=== PATIENT | female | born 1990 | race Caucasian/White ===

== ENCOUNTER 2018-06-06 18:07 | Emergency (ER) | payer BC ==
--- NOTE | 2018-06-06 18:28 | EDPHY ---
H & P Stated Complaint: cough, chills, lower back pain x 2 days Time Seen by Provider: 06/06/18 18:28 HPI/ROS: HPI: This is a 27-year-old female who presents with Chief Complaint: cough, chills, lower back pain x 2 days Location: Body Quality: Fever Duration: 2 day Signs and Symptoms: + fever, no nausea, no vomiting, no hematemesis, no blood in stool, no abdominal bloating, no diarrhea, + bilateral lumbar back pain, no urinary symptoms, no vaginal bleeding/discharge, no indigestion, no chest pain, no shortness of breath Timing: Acute, constant Severity: Moderate Context: Patient is a student at [employer], also works part-time in a local restaurant, presents with 2 day history of fever T-max 101 F at home, nonproductive cough, chills, fatigue, bilateral lumbar back pain. Patient denies any urinary symptoms no burning with urination, no frequency, no hesitancy. Patient denies vaginal bleeding or discharge. Did not receive influenza vaccine this year. Never smoked. Patient reports that she has not had a fever today. She did take Tylenol yesterday. Denies sore throat, neck stiffness, changes in voice, drooling, postnasal drip, nasal congestion, headache. No recent foreign travel. No history of lung disease. Modifying Factors: Tylenol taking yesterday but none within the last 24 hr Comment: ROS: A comprehensive 10 system review of systems is otherwise negative aside from elements mentioned in the history of present illness. MEDICAL/SURGICAL/SOCIAL HISTORY: Medical history: Generally healthy. Does not take any regular medications. Surgical history: Denies Social history: Never smoked. Family history noncontributory. CONSTITUTIONAL: Nontoxic-appearing, young adult white female, polite and cooperative, awake and alert, no obvious distress HEENT: Atraumatic and normocephalic, PERRL, EOMI. Nares patent; no rhinorrhea; no nasal mucosal edema. Tympanic membranes clear. Oropharynx clear, tonsils 1 + without hypertrophy or erythema, no exudate and moist pink mucosa. Uvula midline. Airway patent. No lymphadenopathy. No meningismus. Cardiovascular: Normal S1/S2, regular rate, regular rhythm, without murmur rub or gallop. PULMONARY/CHEST: Symmetrical and nontender. Clear to auscultation bilaterally. Good air movement. No accessory muscle usage. ABDOMEN: Soft, nondistended, nontender, no rebound, no guarding, no peritoneal signs, no masses or organomegaly. No CVAT. EXTREMITIES: 2/2 pulses, strength 5/5, no deformities, no clubbing, no cyanosis or edema. NEUROLOGICAL: no focal neuro deficits. GCS 15. Speech clear, SKIN: Warm and dry, no erythema. no rash. Good capillary refill. Source: Patient Exam Limitations: No limitations - Personal History LMP (Females 10-55): IUD In Place - Medical/Surgical History Hx Asthma: No Hx Chronic Respiratory Disease: No Hx Diabetes: No Hx Cardiac Disease: No Hx Renal Disease: No Hx Cirrhosis: No Hx Alcoholism: No Hx HIV/AIDS: No Hx Splenectomy or Spleen Trauma: No Other PMH: pylo - Social History Smoking Status: Never smoked Constitutional: Initial Vital Signs Temperature (C) 37.4 C 06/06/18 18:17 Heart Rate 102 H 06/06/18 18:17 Respiratory Rate 20 06/06/18 18:17 Blood Pressure 109/91 H 06/06/18 18:17 O2 Sat (%) 97 06/06/18 18:17 O2 Delivery Mode Room Air Allergies/Adverse Reactions: No Known Allergies Allergy (Unverified 06/06/18 18:16) Home Medications: Medication Instructions Recorded NK [No Known Home Meds] 06/06/18 Medical Decision Making ED Course/Re-evaluation: Vital signs reviewed and show mild tachycardia. No pyrexia in 24 hr. No signs of hypoxia/respiratory distress. IV access, laboratory studies, urinalysis, influenza swab ordered Given 2 L normal saline, IV Toradol 30 mg 1911: Notified by RN that temperature 38.1 C. 1000 mg Tylenol ordered 1914: Labs reviewed. No signs of leukocytosis/anemia/platelet dysfunction/JACEY/ elevated LFTs/electrolyte imbalance/pancreatitis//mono. 1918: Urinalysis shows 2+ ketones but no signs of infection, no hematuria. 1929: Notified by tech that patient is influenza A positive. Based on CDC guidelines, patient is not a candidate for the Tamiflu. Advised supportive care, work and school excuse provided. This patient was seen under the supervision of my secondary supervising physician. I evaluated care for this patient independently. Discussed this patient with Dr. King. Differential Diagnosis: Adult fever including but not limited to viral syndromes including influenza, urinary tract infection, pneumonia and sepsis. - Data Points Laboratory Results: Laboratory Results 06/06/18 18:40 06/06/18 18:40 06/06/18 06/06/18 06/06/18 19:12 18:40 18:40 WBC RBC Hgb Hct MCV MCH MCHC RDW Plt Count MPV Neut % (Auto) Lymph % (Auto) Grand % (Auto) Eos % (Auto) Baso % (Auto) Nucleat RBC Rel Count Absolute Neuts (auto) Absolute Lymphs (auto) Absolute Monos (auto) Absolute Eos (auto) Absolute Basos (auto) Absolute Nucleated RBC Immature Gran % Immature Gran # RBC/WBC/PLT Morphology Platelet Estimate Sodium Potassium Chloride Carbon Dioxide Anion Gap BUN Creatinine Estimated GFR Glucose Calcium Total Bilirubin Conjugated Bilirubin Unconjugated Bilirubin AST ALT Alkaline Phosphatase Total Protein Albumin Lipase Beta HCG, Qual NEGATIVE Urine Color YELLOW Urine Appearance CLEAR Urine pH 7.0 (5.0-7.5) Ur Specific [place] 1.008 (1.002-1.030) Urine Protein NEGATIVE (NEGATIVE) Urine Ketones 2+ H (NEGATIVE) Urine Blood NEGATIVE (NEGATIVE) Urine Nitrate NEGATIVE (NEGATIVE) Urine Bilirubin NEGATIVE (NEGATIVE) Urine Urobilinogen NEGATIVE EU EU (0.2-1.0) Ur Leukocyte Esterase NEGATIVE (NEGATIVE) Urine Glucose NEGATIVE (NEGATIVE) Nasal Influenza A PCR FLU A DETECTED H (NEGATIVE) Nasal Influenza B PCR NEGATIVE FOR FLU B (NEGATIVE) Monoscreen NEGATIVE (NEGATIVE) 06/06/18 06/06/18 18:40 18:40 WBC 4.80 10^3/uL 10^3/uL (3.80-9.50) RBC 5.13 10^6/uL 10^6/uL (4.18-5.33) Hgb 15.4 g/dL g/dL (12.6-16.3) Hct 44.3 % % (38.0-47.0) MCV 86.4 fL fL (81.5-99.8) MCH 30.0 pg pg (27.9-34.1) MCHC 34.8 g/dL g/dL (32.4-36.7) RDW 12.1 % % (11.5-15.2) Plt Count 236 10^3/uL 10^3/uL (150-400) MPV 9.4 fL fL (8.7-11.7) Neut % (Auto) 77.7 % H % (39.3-74.2) Lymph % (Auto) 9.2 % L % (15.0-45.0) Grand % (Auto) 12.3 % % (4.5-13.0) Eos % (Auto) 0.0 % L % (0.6-7.6) Baso % (Auto) 0.6 % % (0.3-1.7) Nucleat RBC Rel Count 0.0 % % (0.0-0.2) Absolute Neuts (auto) 3.73 10^3/uL 10^3/uL (1.70-6.50) Absolute Lymphs (auto) 0.44 10^3/uL L 10^3/uL (1.00-3.00) Absolute Monos (auto) 0.59 10^3/uL 10^3/uL (0.30-0.80) Absolute Eos (auto) 0.00 10^3/uL L 10^3/uL (0.03-0.40) Absolute Basos (auto) 0.03 10^3/uL 10^3/uL (0.02-0.10) Absolute Nucleated RBC 0.00 10^3/uL 10^3/uL (0-0.01) Immature Gran % 0.2 % % (0.0-1.1) Immature Gran # 0.01 10^3/uL 10^3/uL (0.00-0.10) RBC/WBC/PLT Morphology TNP Platelet Estimate ADEQUATE (ADEQ) Sodium 136 mEq/L mEq/L (135-145) Potassium 3.9 mEq/L mEq/L (3.5-5.2) Chloride 106 mEq/L mEq/L (97-110) Carbon Dioxide 22 mEq/l mEq/l (22-31) Anion Gap 8 mEq/L mEq/L (6-14) BUN 7 mg/dL mg/dL (7-23) Creatinine 0.8 mg/dL mg/dL (0.6-1.0) Estimated GFR > 60 Glucose 90 mg/dL mg/dL (70-100) Calcium 9.2 mg/dL mg/dL (8.5-10.4) Total Bilirubin 0.6 mg/dL mg/dL (0.1-1.4) Conjugated Bilirubin 0.2 mg/dL mg/dL (0.0-0.5) Unconjugated Bilirubin 0.4 mg/dL mg/dL (0.0-1.1) AST 24 IU/L IU/L (14-46) ALT 26 IU/L IU/L (9-52) Alkaline Phosphatase 69 IU/L IU/L (38-126) Total Protein 7.5 g/dL g/dL (6.3-8.2) Albumin 4.4 g/dL g/dL (3.5-5.0) Lipase 69 IU/L IU/L (23-300) Beta HCG, Qual Urine Color Urine Appearance Urine pH Ur Specific [place] Urine Protein Urine Ketones Urine Blood Urine Nitrate Urine Bilirubin Urine Urobilinogen Ur Leukocyte Esterase Urine Glucose Nasal Influenza A PCR Nasal Influenza B PCR Monoscreen Medications Given: Discontinued Medications Acetaminophen (Tylenol) 1,000 mg PO EDNOW ONE Stop: 06/06/18 19:13 Last Admin: 06/06/18 19:15 Dose: 1,000 mg Sodium Chloride (Ns) 1,000 mls @ 3,000 mls/hr IV ONCE ONE Stop: 06/06/18 18:57 Last Admin: 06/06/18 18:38 Dose: 1,000 mls Sodium Chloride (Ns) 1,000 mls @ 0 mls/hr IV EDNOW ONE; Wide Open PRN Reason: Protocol Stop: 06/06/18 18:35 Last Admin: 06/06/18 19:01 Dose: 1,000 mls Sodium Chloride (Ns) 1,000 mls @ 0 mls/hr IV EDNOW ONE; Wide Open PRN Reason: Protocol Stop: 06/06/18 18:35 Last Admin: 06/06/18 19:02 Dose: Not Given Ketorolac Tromethamine (Toradol) 30 mg IVP EDNOW ONE Stop: 06/06/18 18:35 Last Admin: 06/06/18 19:01 Dose: 30 mg Departure - Departure Disposition: Home, Routine, Self-Care Clinical Impression: Influenza A Condition: Good Instructions: Influenza (ED) Additional Instructions: Rest as much as possible until you are feeling better. Consume a minimum of 8-10 glasses of water or electrolyte fluid replacement drinks that include Gatorade, Powerade, Pedialyte. Eat a bland diet for the next 48 hours and then slowly advance as tolerated. Take Tylenol 650 mg every 4 hr and/or ibuprofen 600-800 mg every 6-8 hours with food as needed for pain, fever. Take [id number] cold medications as needed for cold symptoms. Referrals: DEWAYNE Romero,. [Clinic] - As per Instructions Stand Alone Forms: Work Excuse, School Excuse
[2018-06-06] MEDS ORDERED: NS 1,000 ML IV ONE ×3 (18:34→18:38)
[2018-06-06] MEDS ORDERED: KETOROLAC 30 MG/1 ML SDV IVP ONE (18:34)
[2018-06-06 18:58] LABS: PLATELET COUNT 236 10^3/uL (150-400)
[2018-06-06 19:11] VITALS: BP 120/76
[2018-06-06] MEDS ORDERED: ACETAMINOPHEN 500 MG TAB PO ONE (19:12)
== END 2018-06-06 19:53 | disposition home or self-care (01) ==
DX: J10.1 Influenza due to other identified influenza virus with other respiratory manifestations (principal); E86.9 Volume depletion, unspecified
CPT/HCPCS: J1885

== ENCOUNTER 2018-09-07 22:31 | Emergency (ER) | payer BC, OTHER ==
--- NOTE | 2018-09-07 22:46 | EDPHY ---
General - History Smoking Status: Never smoked Time Seen by Provider: 09/07/18 22:46 Narrative: CLINICAL IMPRESSION: Left middle finger laceration and index finger abrasion ASSESSMENT/PLAN: Patient is a 28-year-old female with no significant medical history presents to the emergency department with complaints of a left middle finger laceration and pointer finger abrasion after cutting her finger on a wine glass. Physical examination reveals 1 cm laceration overlying the dorsal aspect of her left middle PIP, superficial abrasion to the radial aspect of her left pointer middle phalanx. There is no evidence of deep structure involvement, neurovascular compromise, foreign body, or bony involvement. X-ray revealed no bony abnormality or evidence of radiopaque foreign body. The wound was not contaminated, tetanus status was updated today. The wounds were irrigated and then repaired as discussed in the procedure note, the patient tolerated this well. Wound care reviewed, she will return to the emergency department in 7-10 days for suture removal. Return precautions discussed. ED PROCEDURES: Laceration Repair Verbal consent obtained by patient. Risks discussed, including but not limited to infection, pain, retained foreign body, need for additional repair, poor cosmetic result, tendon damage, nerve damage, poor wound healing, vascular damage. Alternatives to repair discussed. [place] protocol used to establish correct patient, procedure, equipment and site. Anesthesia obtained by topical application and local infiltration. Anesthetized with let and 1% lidocaine with epinephrine. Laceration location left middle finger, dorsal aspect across the PIP, length 1 cm, depth 2 mm, Repair type simple. Patient was prepped and draped in usual sterile fashion. Hemostasis achieved with direct pressure. Wound explored through full range of motion and entire depth of wound probed and visualized with gloved finger. No suspicion for nerve damage, tendon damage, underlying fracture, vascular damage, foreign body, or contamination. Area was cleansed with Shur-Clens and irrigated with sterile saline as per protocol. No foreign body or material removed. Repair method 5.0 Prolene. Three sutures placed. Well aligned, closely approximated. wound was dressed with antibiotic ointment, dressing and splint. Patient tolerated well with no immediate complications. The abrasion was covered with Dermabond. Wound care: Clean and dry x 24 hours, gently clean with soap and water, cover with topical antibiotic ointment/bandage. Suture/Staple removal: 7-10 Days CHIEF COMPLAINT: Laceration HPI: Patient is a 28-year-old female with no significant medical history who presents to the emergency department with complaints of multiple lacerations to her left hand sustained just prior to arrival. Patient works at [employer], she was putting away some wine glasses when 1 accidentally broke, subsequently causing a laceration to her left middle finger and left pointer finger. She was able to get the bleeding under control after the incident. She denies any numbness or tingling of the fingers. She does not believe there is any retained glass however is unsure. She is not up-to-date on her tetanus status. She is right-hand dominant. She denies any other injury or complaint. REVIEW OF SYSTEMS: All other systems negative, please see HPI. PHYSICAL EXAM: General Appearance: Alert, oriented, appropriate for age, cooperative, NAD, well hydrated, non-toxic appearing, VSS, no hypoxia. Neurological: Alert and oriented x 3. Cranial nerves 2-12 grossly intact. Skin: Warm, dry. Upper Extremities: Left hand reveals a 1 cm laceration overlying the PIP dorsal aspect, there is an abrasion along the radial aspect of the middle phalanx of the left pointer finger. Each interphalangeal joint was tested independently with full strength and range of motion. Two point discrimination is intact distally at each digit. Left upper extremity is otherwise unremarkable. The radial, ulnar and median nerves were all tested. Radial nerve: Patient is able to extend wrist and fingers of the local joints. Ulnar nerve: Patient is able to abduct all fingers. Median nerve patient is able to oppose thumb to pinky. Right upper extremity unremarkable- Intact distal pulses, Full range of motion intact, no tenderness, no ecchymosis or edema. Lower Extremities: Intact distal pulses, No edema, No tenderness, No cyanosis, full range of motion intact, No calf tenderness bilaterally. MEDICAL DECISION MAKING: Patient was seen independently. Secondary supervising physician at time of evaluation was Dr. Dang, she did not evaluate this patient. Diagnosis: Left hand laceration and abrasion. Summary: See assessment and plan for summary of ED visit Independent visualization of images, tracing, or specimens Yes / No. Decision to obtain medical records or history from someone other than the patient: No Review / Summarize previous medical records: Yes Disposition: Stable, discharge (Chata Woody) PHYSICIAN DOCUMENTATION: The patient was evaluated and managed by the Physician Crane Crew Supervisor. My co- signature indicates that I have reviewed this chart and I agree with the findings and plan of care as documented. I am the secondary supervising physician. (Brenda Dang) - Diagnostics Imaging Results: Imaging Impressions Hand X-Ray 09/07/18 22:50 Impression: Swelling without radiopaque foreign object. - Objective Vital Signs: Initial Vital Signs Temperature (C) 36.6 C 09/07/18 22:32 Heart Rate 88 09/07/18 22:32 Respiratory Rate 18 09/07/18 22:32 Blood Pressure 123/65 H 09/07/18 22:32 O2 Sat (%) 97 09/07/18 22:32 O2 Delivery Mode Room Air Allergies/Adverse Reactions: No Known Allergies Allergy (Unverified 09/07/18 22:31) Home Medications: Medication Instructions Recorded NK [No Known Home Meds] 06/06/18 Medications Given: Discontinued Medications Diazepam (Valium) 5 mg PO EDNOW ONE Stop: 09/07/18 23:00 Last Admin: 09/07/18 23:03 Dose: 5 mg Diphtheria/Tetanus/Acell Pertussis (Boostrix) 0.5 ml IM .ONCE ONE Stop: 09/07/18 22:51 Last Admin: 09/07/18 22:57 Dose: 0.5 ml Tetracaine/Epinephrine/Lidocaine (Let Gel Topical) 1 ea TP EDNOW ONE Stop: 09/07/18 22:51 Last Admin: 09/07/18 22:55 Dose: 1 ea Departure - Departure Disposition: Home, Routine, Self-Care Clinical Impression: Laceration of finger, Abrasion Condition: Good Instructions: Laceration (ED) Additional Instructions: DISCHARGE INSTRUCTIONS FROM YOUR PROVIDER Thank you for visiting our emergency department today. Please be sure to follow up with your workman's Comp. The dressing on your pointer finger is skin adhesive glue, please leave this alone as it will fall off went is ready. Do not pick it off. Keep your laceration wound clean and dry for 24 hours. Then remove dressing, clean at least twice daily or when soiled with soap and water, apply antibiotic ointment and dressing. Do not soak the wound while the stitches are in place. Elevate hand as much as possible for the next 24 hours to decrease the swelling and pain. Wear the splint to immobilize the finger for the next 2-5 days to facilitate rapid healing. Anticipate suture removal in 7-10 days. For pain control: You may take Tylenol, I recommend 500-1000 mg every 6-8 hours as needed. Take with food and a full glass of water. Stop taking if this is upsetting you stomach. Do not exceed 4000 mg in a 24 hr period. You may also take ibuprofen, recommend 400 mg every 6 hr. Take with food and a full glass of water. Stop taking if this upsets your stomach. Do not exceed 2400 mg in a 24 hr period. As discussed the laceration was not deep enough to visualize the tendon today. It is unlikely a tendon injury is present and your tendon function is currently intact. However, if at any time, you feel a pop and have difficulty bending or straightening the finger, you should seek re-evaluation from a hand specialist urgently. Return for signs of wound infection ie: redness, swelling, drainage, foul odor, red streaks, fever, chills, pain, bleeding, if the stitches pop, if the wound opens, for numbness, tingling, weakness, discoloration of the finger, coolness of the finger, inability to move or bend the finger or for any other new, worsening or concerning symptom. People present with illnesses and injuries in different ways, and it is always possible that we have missed something. Again, thank you for choosing our emergency department. We hope that you feel better. Referrals: Alyssa Obando MD [Medical Doctor] - As per Instructions (This is a referral for a primary care doctor if you need to establish care.) ED,PHYSICIAN MIGUEL [Medical Doctor] - As per Instructions (Please return to the emergency department in 7-10 days for suture removal.)
[2018-09-07] MEDS ORDERED: TDAP ADULT 0.5 ML INJ (BOOSTRIX) IM ONE (22:50)
[2018-09-07] MEDS ORDERED: LET GEL TOPICAL 1 EA SYR TP ONE (22:50)
[2018-09-07] MEDS ORDERED: DIAZEPAM 5 MG TAB PO ONE (22:59)
[2018-09-07] MEDS ORDERED: SKIN ADHESIVE (DERMABOND) 1 EACH TP ONE (23:29)
[2018-09-07 23:56] VITALS: BP 128/65
== END 2018-09-07 23:55 | disposition home or self-care (01) ==
PROC: 0HQGXZZ Repair Left Hand Skin, External Approach (ICD-10-PCS; principal; 2018-09-07)
DX: S61.213A Laceration without foreign body of left middle finger without damage to nail, initial encounter (principal); W25.XXXA Contact with sharp glass, initial encounter; Y99.0 Civilian activity done for income or pay; Z23 Encounter for immunization
CPT/HCPCS: L3925